=== PATIENT | male | born 1955 | race American Indian/Alaskan Native ===

== ENCOUNTER 2017-07-03 15:24 | Emergency (ER) | payer MEDICARE ==
[2017-07-03 15:39] VITALS: BP 113/80
[2017-07-03 16:32] LABS: Hematocrit 29.6 % (35.5-45.6); Hemoglobin 9.6 gm/dl (11.8-15.2); Mean Corpuscular HGB Conc 32 % (32-34); Mean Corpuscular Hemoglobin 27 pg (28-32); Mean Corpuscular Volume 83 fl (84-94); Platelet Count 182 K/mm3 (140-440); Red Blood Count 3.55 M/mm3 (3.65-5.03)
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
[2017-07-03 16:40] LABS: BUN/Creatinine Ratio 10; Blood Urea Nitrogen 7 mg/dL (9-20); Calcium 8.2 mg/dL (8.4-10.2); Hemolysis Index 0
[2017-07-03 17:03] LABS: Alanine Aminotransferase 63 units/L (7-56); Albumin 2.3 g/dL (3.9-5); BUN/Creatinine Ratio 12; Blood Urea Nitrogen 7 mg/dL (9-20); Calcium 8.2 mg/dL (8.4-10.2); Hemolysis Index 3
[2017-07-03 18:06] LABS: Anisocytosis 1+; Basophils % (Manual) 0 % (0.0-1.8); Eosinophils % (Manual) 0 % (0.0-4.3); Total Cells Counted 50
[2017-07-03 18:07] LABS: Macrocytosis 1+; Platelet Estimate Consistent w Auto; Target Cells 1+
== END 2017-07-03 20:13 | disposition home or self-care (01) ==
LOC: ED 15:24
DX: F14.10 Cocaine abuse, uncomplicated (principal); F11.10 Opioid abuse, uncomplicated; R60.0 Localized edema; I10 Essential (primary) hypertension; F17.200 Nicotine dependence, unspecified, uncomplicated; Z86.718 Personal history of other venous thrombosis and embolism; Z79.01 Long term (current) use of anticoagulants; Z79.899 Other long term (current) drug therapy
CPT/HCPCS: 36415; 80048; 80053; 82140; 83735; 85007; 85025; 99283; G0480; 80320

== ENCOUNTER 2017-07-15 14:18 | Inpatient (IN) | payer MEDICARE, OTHER ==
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
[2017-07-15] MEDS ORDERED: ASPIRIN PO ONE (15:57)
[2017-07-15 16:47] LABS: Bilirubin,Urine NEG (Negative); Blood,Urine NEG (Negative); Color,Urine Yellow (Yellow); Hyaline Casts,Urine 3 /LPF; Mucus,Urine FEW /HPF; Protein,Urine <15 mg/dL mg/dL (Negative); Urobilinogen,Urine < 2.0 mg/dL (<2.0)
[2017-07-15 17:00] LABS: Amphetamine Screen,Urine PRESUMPTIVE NEGATIVE; Benzodiazepines Screen,Urine PRESUMPTIVE NEGATIVE; Cannabinoid Screen,Urine PRESUMPTIVE NEGATIVE; Cocaine Screen,Urine PRESUMPTIVE NEGATIVE; Methadone Screen,Urine PRESUMPTIVE NEGATIVE; Opiate Screen,Urine PRESUMPTIVE NEGATIVE
[2017-07-15 17:08] LABS: Basophils % (Auto) 1.1 % (0.0-1.8); Eosinophils # (Auto) 0.1 K/mm3 (0.0-0.4); Eosinophils % (Auto) 1.4 % (0.0-4.3); Hematocrit 32.9 % (35.5-45.6); Hemoglobin 10.5 gm/dl (11.8-15.2); Lymphocytes # (Auto) 0.9 K/mm3 (1.2-5.4); Lymphocytes % (Auto) 24.6 % (13.4-35.0); Mean Corpuscular HGB Conc 32 % (32-34); Mean Corpuscular Hemoglobin 26 pg (28-32); Mean Corpuscular Volume 82 fl (84-94); Monocytes # (Auto) 0.6 K/mm3 (0.0-0.8); Monocytes % (Auto) 15.6 % (0.0-7.3); Platelet Count 110 K/mm3 (140-440); Red Blood Count 4.01 M/mm3 (3.65-5.03)
[2017-07-15 17:09] LABS: Red Cell Distribution Width 21.5 % (13.2-15.2)
[2017-07-15 17:18] LABS: INR 1.54 (0.87-1.13)
[2017-07-15 17:19] LABS: Partial Thromboplastin Time 51.4 Sec. (24.2-36.6)
[2017-07-15 17:34] LABS: Alanine Aminotransferase 85 units/L (7-56); Albumin 2.3 g/dL (3.9-5); BUN/Creatinine Ratio 18; Blood Urea Nitrogen 11 mg/dL (9-20); Calcium 8.2 mg/dL (8.4-10.2); Hemolysis Index 4
[2017-07-15 18:17] LABS: HDL Cholesterol 15 mg/dL (40-59); LDL Cholesterol,Direct 72 mg/dL (50-130)
--- NOTE | 2017-07-15 19:12 | History and Physical Report ---
History of Present Illness Chief complaint: My chest hurts History of present illness: 61 YO Male with HTN, HCV, Cirrhosis with Ascites S/P Paracentesis, DVT on therapeutic anticoagulation presents to ED for evaluation. Pt states that he has experienced chest pain and shortness of breath for the past 2 weeks with worsening symptoms over the past 1 day. Patient was brought in by EMS from [facility] and has an officer at bedside. Patient states that the pain in his chest 4/10, Substernal, worse with exertion, relieved with rest, nonradiating, relieved with rest, associated with shortness of breath. Pt denies fever, chills, palpitations, NVD, hemoptysis, trauma, BRBPR, unintentional weight loss , night sweats, Orthopnea/PND,Productive cough, or recent ill contacts. Pt seen and evaluated in ED and found to have NSTEMI. Cardiology consulted. Pt admitted to telemetry. Past History Past Medical History: DVT, hepatitis, other (cirrhosis) Past Surgical History: bowel surgery Social history: single. denies: smoking, alcohol abuse, prescription drug abuse Family history: hypertension Medications and Allergies Allergies Allergy/AdvReac Type Severity Reaction Status Date / Time No Known Allergies Allergy Verified 05/20/13 20:02 Home Medications Medication Instructions Recorded Confirmed Last Taken Type Citalopram [Celexa] 20 mg PO QDAY 05/20/13 05/19/14 01/14/14 History Clindamycin [Cleocin] 300 mg PO Q8H #21 cap 05/23/14 Unknown Rx Lisinopril [Zestril TAB] 10 mg PO QDAY #30 tablet 05/23/14 Unknown Rx Mirtazapine Solutab [Remeron 15 mg PO QHS #30 tab.rapdis 05/23/14 Unknown Rx Solutab] Morphine ER [Ms Contin ER] 15 mg PO Q12HR #10 tablet 05/23/14 Unknown Rx Rosuvastatin (Nf) [Crestor] 20 mg PO QHS #30 tablet 05/23/14 Unknown Rx amLODIPine [Norvasc] 5 mg PO QDAY #30 tablet 05/23/14 Unknown Rx oxyCODONE /ACETAMINOPHEN [Percocet 1 tab PO Q4H PRN #30 tablet 05/23/14 Unknown Rx 5/325 mg] Review of Systems Constitutional: no weight loss, no weight gain, no fever, no chills Ears, nose, mouth and throat: no ear pain, no ear discharge, no tinnitis, no decreased hearing, no nose pain, no nasal congestion Cardiovascular: chest pain, no orthopnea, no palpitations, no edema, no syncope Respiratory: no cough, no cough with sputum, no excessive sputum, no hemoptysis Gastrointestinal: no nausea, no vomiting, no diarrhea, no constipation Genitourinary Male: no hematuria, no flank pain, no discharge, no urinary frequency, no urinary hesitancy, no nocturia Rectal: no pain, no incontinence, no bleeding Musculoskeletal: no neck stiffness, no neck pain, no shooting arm pain, no arm numbness/tingling, no low back pain Integumentary: no rash, no pruritis, no redness, no sores, no wounds Neurological: no paralysis, no weakness, no parathesias, no numbness, no tingling, no seizures, no syncope, no tremors Psychiatric: no anxiety, no memory loss, no change in sleep habits, no sleep disturbances, no insomnia, no hypersomnia, no change in appetite, no change in libido Endocrine: no cold intolerance, no heat intolerance, no polyphagia, no excessive thirst, no polydipsia, no polyuria, no nocturia Hematologic/Lymphatic: no easy bruising, no easy bleeding, no lymphadenopathy, no lymphedema Allergic/Immunologic: no urticaria, no allergic rhinitis, no wheezing, no persistent infections, no anaphylaxis, no angioedema Exam - Constitutional Vitals: Temp Pulse Resp BP Pulse Ox 97.8 F 60 15 111/73 100 07/15/17 15:16 07/15/17 15:16 07/15/17 16:02 07/15/17 15:16 07/15/17 16:02 General appearance: Present: mild distress, cachectic, disheveled - EENT Eyes: Present: PERRL, scleral icterus ENT: hearing intact, clear oral mucosa - Neck Neck: Present: supple, normal ROM - Respiratory Respiratory effort: normal Respiratory: bilateral: CTA, rhonchi - Cardiovascular Heart Sounds: Present: S1 & S2. Absent: rub, click - Extremities Extremities: pulses symmetrical, No edema Peripheral Pulses: within normal limits - Abdominal General gastrointestinal: Present: soft, distended, hypoactive bowel sounds Male genitourinary: Present: normal - Integumentary Integumentary: Present: clear, dry - Musculoskeletal Musculoskeletal: generalized weakness - Psychiatric Psychiatric: appropriate mood/affect, intact judgment & insight - Neurologic Neurologic: CNII-XII intact, moves all extremities Results - Labs CBC & Chem 7: 18 16:36 07/15/17 16:48 Labs: Abnormal lab results 07/15/17 07/15/17 07/15/17 Range/Units 16:36 16:36 16:48 WBC 3.8 L (4.5-11.0) K/mm3 Hgb 10.5 L (11.8-15.2) gm/dl Hct 32.9 L (35.5-45.6) % MCV 82 L (84-94) fl MCH 26 L (28-32) pg RDW 21.5 H (13.2-15.2) % Plt Count 110 L (140-440) K/mm3 [place] % (Auto) 15.6 H (0.0-7.3) % Lymph # 0.9 L (1.2-5.4) K/mm3 PT 19.4 H (12.2-14.9) Sec. INR 1.54 H (0.87-1.13) APTT 51.4 H (24.2-36.6) Sec. Sodium (137-145) mmol/L Creatinine (0.8-1.5) mg/dL Calcium (8.4-10.2) mg/dL Total Bilirubin (0.1-1.2) mg/dL AST (5-40) units/L ALT (7-56) units/L Alkaline Phosphatase (35-129) units/L Ammonia 62.0 H (25-60) umol/L Troponin T (0.00-0.029) ng/mL Albumin (3.9-5) g/dL HDL Cholesterol (40-59) mg/dL 07/15/17 Range/Units 16:48 WBC (4.5-11.0) K/mm3 Hgb (11.8-15.2) gm/dl Hct (35.5-45.6) % MCV (84-94) fl MCH (28-32) pg RDW (13.2-15.2) % Plt Count (140-440) K/mm3 [place] % (Auto) (0.0-7.3) % Lymph # (1.2-5.4) K/mm3 PT (12.2-14.9) Sec. INR (0.87-1.13) APTT (24.2-36.6) Sec. Sodium 135 L (137-145) mmol/L Creatinine 0.6 L (0.8-1.5) mg/dL Calcium 8.2 L (8.4-10.2) mg/dL Total Bilirubin 3.60 H (0.1-1.2) mg/dL AST 178 H (5-40) units/L ALT 85 H (7-56) units/L Alkaline Phosphatase 907 H (35-129) units/L Ammonia (25-60) umol/L Troponin T 0.118 H* (0.00-0.029) ng/mL Albumin 2.3 L (3.9-5) g/dL HDL Cholesterol 15 L (40-59) mg/dL Assessment and Plan - Patient Problems (1) Non-STEMI (non-ST elevated myocardial infarction) Current Visit: Yes Status: Acute Plan to address problem: Cardiology consulted in ED, Therapeutic anticoagulation, serial cardiac enzymes , ekg, telemetry, further testing as per cardiology team. (2) Cirrhosis Current Visit: Yes Status: Acute Qualifiers: Ascites presence: with ascites Plan to address problem: Supportive care, Outpatient GI F/U. (3) Ascites Current Visit: Yes Status: Acute Plan to address problem: CT Abdomen pelvis, coagulation profile, supportive care. (4) DVT prophylaxis Current Visit: No Status: Acute Plan to address problem: SCD to BLE while in bed
[2017-07-15] MEDS ORDERED: ZOFRAN IV PRN (19:15)
[2017-07-15] MEDS ORDERED: SODIUM CHLORIDE FLUSH SYRINGE 10 ML IV PRN ×2 (19:15)
[2017-07-15] MEDS ORDERED: TYLENOL PO PRN (19:15)
[2017-07-15 19:41] LABS: Eosinophils % (Auto) 1.5 % (0.0-4.3); Hematocrit 31.7 % (35.5-45.6); Hemoglobin 10.1 gm/dl (11.8-15.2); Lymphocytes # (Auto) 0.8 K/mm3 (1.2-5.4); Lymphocytes % (Auto) 24.7 % (13.4-35.0); Mean Corpuscular HGB Conc 32 % (32-34); Mean Corpuscular Hemoglobin 26 pg (28-32); Mean Corpuscular Volume 82 fl (84-94); Monocytes # (Auto) 0.4 K/mm3 (0.0-0.8); Platelet Count 117 K/mm3 (140-440); Red Blood Count 3.86 M/mm3 (3.65-5.03)
[2017-07-15 19:43] LABS: Red Cell Distribution Width 21.2 % (13.2-15.2)
[2017-07-15 20:00] LABS: BUN/Creatinine Ratio 28; Blood Urea Nitrogen 11 mg/dL (9-20); Calcium 7.7 mg/dL (8.4-10.2); Hemolysis Index 36
[2017-07-15 20:01] LABS: Creatine Kinase MB 8.5 ng/mL (0.0-4.0)
[2017-07-15 20:20] LABS: Creatine Kinase MB 7.8 ng/mL (0.0-4.0)
--- NOTE | 2017-07-15 21:29 | Cat Scan Report ---
FINAL REPORT PROCEDURE: CT ABDOMEN PELVIS W CON TECHNIQUE: Computerized axial tomography of the abdomen and pelvis was performed after the IV injection of iodinated nonionic contrast. HISTORY: abd pain COMPARISON: No prior studies are available for comparison. FINDINGS: Lower Lung blair: Small right pleural effusion, small to moderate size left pleural effusion visualized. Patchy densities present adjacent to the effusions likely representing atelectasis, pneumonia needs clinical exclusion. Coronary arteries are visualized and appear partially calcified. There also appears to be a coronary artery stent in place. No evidence of pericardial effusion. Upper Abdomen: The edge of the liver appears finely diffusely nodular suggesting cirrhosis. No discrete liver lesions are identified. Multiple moderate-sized gallstones seen lying dependently in the gallbladder. Gallbladder wall is thickened. Intrahepatic ducts are not distended. The spleen is not enlarged. Right adrenal gland appears normal. Indeterminate 9 millimeter x 11 millimeter nodular density seen in the left adrenal gland. Pancreas showed no focal abnormality. Kidneys, Ureters and Urinary bladder: Kidneys ureters and urinary bladder are unremarkable. There is fluid however visualized in the perinephric spaces bilaterally. Retroperitoneum: Atherosclerotic changes are seen in the abdominal aorta and iliac arteries.. No aneurysm is visualized. Nonspecific subcentimeter lymph nodes are seen in the retroperitoneum. No pathologically enlarged lymph nodes are identified. Bowel: No focal bowel loop abnormalities are identified. There is no evidence of bowel obstruction. Large amount of ascites is present throughout the abdomen and pelvis distending the abdomen. No free intraperitoneal gas is seen. Reproductive organs: Prostate gland does not appear to be significantly enlarged. Other: There deformity of the left hemipelvis. Old healed fracture with resulting deformity appears to be present. The left SI joint is partially fused. Heterotopic bone formation seen lateral to the left hip. Intramedullary yevgeniy and compression screw device partially visualized in the right hip. IMPRESSION: There is evidence of cirrhosis of the liver and a large amount of ascites throughout the abdomen and pelvis. Gallbladder wall is significantly thickened and gallstones are present consistent with cholecystitis. Small right pleural effusion visualized, small to moderate left pleural effusion visualized. Patchy density seen adjacent to the effusions likely representing atelectasis. Pneumonia needs clinical exclusion. The kidneys ureters and urinary bladder are unremarkable with the exception of fluid in the perinephric space which likely is secondary to the patient's cirrhosis and overall diffuse ascites. Deformity left hemipelvis, the appearance is consistent with an old healed fracture. Intramedullary yevgeniy and compression screw device visualize right hip.
[2017-07-15] MEDS ORDERED: LOVENOX SUB-Q SCH (22:00)
[2017-07-15] MEDS ORDERED: NON-FORMULARY (Rosuvastatin (Nf) 20 MG) PO SCH (22:00)
[2017-07-15] MEDS: MS CONTIN ER PO SCH (22:07)
[2017-07-15] MEDS: SODIUM CHLORIDE FLUSH SYRINGE 10 ML IV SCH (22:09)
[2017-07-16] MEDS: REMERON SOLUTAB PO SCH ×2 (01:26→22:55)
[2017-07-16] MEDS ORDERED: NORVASC PO SCH (10:00)
[2017-07-16] MEDS: MS CONTIN ER PO SCH ×2 (11:05→22:41)
[2017-07-16] MEDS: LOVENOX SUB-Q SCH ×2 (11:05→22:42)
[2017-07-16] MEDS: celeXA PO SCH (11:05)
[2017-07-16] MEDS: ZESTRIL PO SCH (11:06)
[2017-07-16] MEDS: SODIUM CHLORIDE FLUSH SYRINGE 10 ML IV SCH ×2 (11:06→22:43)
--- NOTE | 2017-07-16 14:57 | Progress Note ---
Assessment and Plan - Non-STEMI (non-ST elevated myocardial infarction) Cardiology consulted in ED, Therapeutic anticoagulation, serial cardiac enzymes, Oxygen, ASA, NTG, BB. Lisinopril Statin, cardiology consult . - Cirrhosis Supportive care, GI consult - Ascites GI consult consider IR for paracenthesis CT Abdomen pelvis, coagulation profile, supportive care. - Calculous cholecystitis Has no RUQ pain - DVT prophylaxis Current Visit: No Status: Acute Plan to address problem: SCD to BLE while in bed Subjective Date of service: 07/16/17 Principal diagnosis: NSTEMI. live cirrhosis Interval history: Still having CP but better Objective - Constitutional Vitals: Vital Signs - 12hr 07/16/17 07/16/17 07/16/17 04:23 08:14 11:00 Temperature 100.0 F H 99.4 F 98.4 F Pulse Rate 75 82 44 L Respiratory 20 16 20 Rate Blood Pressure 109/71 Blood Pressure 102/68 95/55 [Left] O2 Sat by Pulse 84 98 97 Oximetry General appearance: Present: no acute distress, well-nourished - EENT Eyes: PERRL, EOM intact - Neck Neck: supple, normal ROM - Respiratory Respiratory effort: normal Respiratory: bilateral: CTA - Cardiovascular Rhythm: regular Heart Sounds: Present: S1 & S2. Absent: gallop, rub Extremities: pulses intact, No edema, normal color, Full ROM - Gastrointestinal General gastrointestinal: Present: soft, non-tender, distended, normal bowel sounds - Integumentary Integumentary: clear, warm, dry - Musculoskeletal Musculoskeletal: 1, strength equal bilaterally - Neurologic Neurologic: moves all extremities - Psychiatric Psychiatric: memory intact, appropriate mood/affect, intact judgment & insight - Labs CBC & Chem 7: 07/15/17 19:25 07/15/17 19:25 Labs: Abnormal lab results 07/15/17 07/15/17 07/15/17 Range/Units 16:36 16:36 16:48 WBC 3.8 L (4.5-11.0) K/mm3 Hgb 10.5 L (11.8-15.2) gm/dl Hct 32.9 L (35.5-45.6) % MCV 82 L (84-94) fl MCH 26 L (28-32) pg RDW 21.5 H (13.2-15.2) % Plt Count 110 L (140-440) K/mm3 [place] % (Auto) 15.6 H (0.0-7.3) % Lymph # 0.9 L (1.2-5.4) K/mm3 PT 19.4 H (12.2-14.9) Sec. INR 1.54 H (0.87-1.13) APTT 51.4 H (24.2-36.6) Sec. Sodium (137-145) mmol/L Carbon Dioxide (22-30) mmol/L Creatinine (0.8-1.5) mg/dL Glucose (75-100) mg/dL Calcium (8.4-10.2) mg/dL Total Bilirubin (0.1-1.2) mg/dL AST (5-40) units/L ALT (7-56) units/L Alkaline Phosphatase (35-129) units/L Ammonia 62.0 H (25-60) umol/L CK-MB (CK-2) (0.0-4.0) ng/mL CK-MB (CK-2) Rel Index (0-4) Troponin T (0.00-0.029) ng/mL Albumin (3.9-5) g/dL HDL Cholesterol (40-59) mg/dL 07/15/17 07/15/17 07/15/17 Range/Units 16:48 19:18 19:25 WBC 3.4 L (4.5-11.0) K/mm3 Hgb 10.1 L (11.8-15.2) gm/dl Hct 31.7 L (35.5-45.6) % MCV 82 L (84-94) fl MCH 26 L (28-32) pg RDW 21.2 H (13.2-15.2) % Plt Count 117 L (140-440) K/mm3 [place] % (Auto) 13.0 H (0.0-7.3) % Lymph # 0.8 L (1.2-5.4) K/mm3 PT (12.2-14.9) Sec. INR (0.87-1.13) APTT (24.2-36.6) Sec. Sodium 135 L (137-145) mmol/L Carbon Dioxide (22-30) mmol/L Creatinine 0.6 L (0.8-1.5) mg/dL Glucose (75-100) mg/dL Calcium 8.2 L (8.4-10.2) mg/dL Total Bilirubin 3.60 H (0.1-1.2) mg/dL AST 178 H (5-40) units/L ALT 85 H (7-56) units/L Alkaline Phosphatase 907 H (35-129) units/L Ammonia (25-60) umol/L CK-MB (CK-2) 8.5 H (0.0-4.0) ng/mL CK-MB (CK-2) Rel Index 5.8 H (0-4) Troponin T 0.118 H* (0.00-0.029) ng/mL Albumin 2.3 L (3.9-5) g/dL HDL Cholesterol 15 L (40-59) mg/dL 07/15/17 07/15/17 Range/Units 19:25 19:46 WBC (4.5-11.0) K/mm3 Hgb (11.8-15.2) gm/dl Hct (35.5-45.6) % MCV (84-94) fl MCH (28-32) pg RDW (13.2-15.2) % Plt Count (140-440) K/mm3 [place] % (Auto) (0.0-7.3) % Lymph # (1.2-5.4) K/mm3 PT (12.2-14.9) Sec. INR (0.87-1.13) APTT (24.2-36.6) Sec. Sodium (137-145) mmol/L Carbon Dioxide 21 L (22-30) mmol/L Creatinine 0.4 L (0.8-1.5) mg/dL Glucose 105 H (75-100) mg/dL Calcium 7.7 L (8.4-10.2) mg/dL Total Bilirubin (0.1-1.2) mg/dL AST (5-40) units/L ALT (7-56) units/L Alkaline Phosphatase (35-129) units/L Ammonia (25-60) umol/L CK-MB (CK-2) 7.8 H (0.0-4.0) ng/mL CK-MB (CK-2) Rel Index 7.2 H (0-4) Troponin T 0.122 H* (0.00-0.029) ng/mL Albumin (3.9-5) g/dL HDL Cholesterol (40-59) mg/dL
[2017-07-16] MEDS ORDERED: CEPHULAC PO SCH (16:00)
[2017-07-16] MEDS: LOPRESSOR PO SCH ×3 (16:10→22:41)
[2017-07-16] MEDS: ASPIRIN PO SCH (16:10)
[2017-07-16 16:46] LABS: BUN/Creatinine Ratio 20; Blood Urea Nitrogen 16 mg/dL (9-20); Calcium 7.9 mg/dL (8.4-10.2); Hemolysis Index 1
[2017-07-16 16:47] LABS: Creatine Kinase MB 4.4 ng/mL (0.0-4.0)
[2017-07-16] MEDS ORDERED: NACL 0.9% 500 ML 500 ML IV ONE (18:59)
[2017-07-16] MEDS: NACL 0.9% 1000 ML 1,000 ML IV SCH (20:17)
[2017-07-16 21:36] LABS: Creatine Kinase MB 5.2 ng/mL (0.0-4.0)
[2017-07-16] MEDS: CEPHULAC PO SCH (22:46)
--- NOTE | 2017-07-17 03:20 | Consultation ---
CARDIOLOGY CONSULTATION Room 469. REFERRING PHYSICIAN: Hospitalist service, Dr. Lopes. REASON FOR CONSULTATION: Advice and opinion regarding chest pain. HISTORY OF PRESENT ILLNESS: The patient is a pleasant 61-year-old gentleman with an extensive medical history including hypertension, hepatitis C, cirrhosis, ascites, questionable past DVT, presents here with 2 weeks of shortness of breath, had some chest pain over the past several days. He is brought to the hospital by EMS from [facility], officer at bedside. Upon arrival to the Emergency Room yesterday did state that he had chest pain. This morning states he does note no further chest pain, feels much better. Denies any fevers, chills, nausea or vomiting. No bright red blood per rectum. PAST MEDICAL HISTORY: As aforementioned. PAST SURGICAL HISTORY: History of abdominal/bowel surgery. SOCIAL HISTORY: Denies tobacco abuse or drug abuse. FAMILY HISTORY: Hypertension. ALLERGIES: No known drug, food or medication allergies. MEDICATION: Inpatient and outpatient medications reviewed. PHYSICAL EXAMINATION: VITAL SIGNS: Blood pressure is 110/70, is afebrile. Tele reveals sinus rhythm, no dysrhythmias. O2 sat is 98% on room air. GENERAL: This is a middle-aged male in no apparent distress, oriented x 3. HEENT: Sclerae icteric. NECK: Supple. No mass or JVD. CHEST: Decreased breath sounds bilateral bases. Overall, moderate air movement. CARDIOVASCULAR: Regular rhythm S1, S2. ABDOMEN: Soft, protuberant. No guarding or rebound. EXTREMITIES: No cyanosis, clubbing, edema. Good peripheral pulses. SKIN: Warm, dry and intact. No rashes. LABORATORY DATA: EKG reveals sinus rhythm, heart rate 61. Nonspecific ST-T wave changes. No dynamic ST change. LABORATORY DATA: WBC 3.4, hemoglobin 10.1, hematocrit 31.7, platelets 117. INR is 1.5. Ammonia is 62. Alk phos 907, ALT is 85, AST is 178. MB is 7.2, total CK is only 107, troponin is 0.12. UDS is negative. CT abdomen and pelvis shows cirrhosis of liver and large amount of ascites in the abdomen and pelvis. CONCLUSIONS: The patient is a pleasant 61-year-old gentleman who presents with chest pain, shortness of breath, abdominal pain. 1. Mildly elevated troponin with a normal CK. He is currently chest pain free with a nonacute EKG. 2. Liver cirrhosis with ascites with protuberant abdomen, may need paracentesis. 3. Hepatitis C. 4. Questionable medication compliance. 5. Questionable history of DVT in the past. At this point, we will check an echocardiogram. Would continue current therapies including Lovenox, aspirin, CONNIE inhibition and statin therapy. We will cycle cardiac enzymes including CK and MB. We will follow along with you. Thank you patient is currently clinically stable and asymptomatic. JOB# [id number] MARITZA/IQRA
[2017-07-17] MEDS ORDERED: LANOXIN IV ONE (04:36)
[2017-07-17 07:10] LABS: Basophils % (Auto) 0.1 % (0.0-1.8); Eosinophils % (Auto) 0.1 % (0.0-4.3); Hematocrit 30.8 % (35.5-45.6); Hemoglobin 10.1 gm/dl (11.8-15.2); Lymphocytes # (Auto) 0.5 K/mm3 (1.2-5.4); Lymphocytes % (Auto) 5.7 % (13.4-35.0); Mean Corpuscular HGB Conc 33 % (32-34); Mean Corpuscular Hemoglobin 27 pg (28-32); Mean Corpuscular Volume 82 fl (84-94); Monocytes # (Auto) 1.2 K/mm3 (0.0-0.8); Monocytes % (Auto) 13.1 % (0.0-7.3); Platelet Count 128 K/mm3 (140-440); Red Blood Count 3.77 M/mm3 (3.65-5.03)
[2017-07-17 07:17] LABS: Red Cell Distribution Width 20.9 % (13.2-15.2)
[2017-07-17 07:31] LABS: Alanine Aminotransferase 61 units/L (7-56); Albumin 1.8 g/dL (3.9-5); BUN/Creatinine Ratio 18; Blood Urea Nitrogen 22 mg/dL (9-20); Calcium 7.7 mg/dL (8.4-10.2); Hemolysis Index 15
--- NOTE | 2017-07-17 09:58 | Progress Note ---
Assessment and Plan clinically improved await tte [facility] in am - Patient Problems (1) Chest pain Current Visit: Yes Status: Acute Qualifiers: Chest pain type: unspecified Qualified Code(s): R07.9 - Chest pain, unspecified (2) Cirrhosis Current Visit: Yes Status: Acute Qualifiers: Ascites presence: with ascites (3) Elevated troponin Current Visit: Yes Status: Acute (4) Liver disease Current Visit: Yes Status: Acute (5) Non-STEMI (non-ST elevated myocardial infarction) Current Visit: Yes Status: Acute Subjective Date of service: 07/17/17 Principal diagnosis: NSTEMI. live cirrhosis Interval history: no new sxs feels tired no cp or sob Objective Vital Signs Temp Pulse Resp BP BP Pulse Ox 07/17/17 07:45 77 07/17/17 06:21 20 104/53 07/17/17 04:47 137 H 82/56 07/17/17 04:14 98.8 F 132 H 22 82/56 99 07/17/17 03:29 71 87/59 98 07/17/17 03:28 71 88/61 85 07/17/17 03:26 98.5 F 115 H 18 83/55 97 07/17/17 00:15 75/49 07/17/17 00:11 61 82/45 99 07/17/17 00:00 98.5 F 68 20 84/45 98 07/16/17 20:51 98.5 F 59 L 18 95/58 100 07/16/17 20:49 87/55 07/16/17 15:43 98.0 F 68 16 83/56 100 07/16/17 11:57 98.0 F 74 16 95/55 100 07/16/17 11:00 98.4 F 44 L 20 95/55 97 07/16/17 10:00 98 - Labs and Meds Cardiac Enzymes 07/16/17 07/16/17 07/17/17 Range/Units 16:01 20:45 05:40 AST 98 H (5-40) units/L CK-MB (CK-2) 4.4 H 5.2 H (0.0-4.0) ng/mL CBC 07/17/17 Range/Units 05:40 WBC 9.0 (4.5-11.0) K/mm3 RBC 3.77 (3.65-5.03) M/mm3 Hgb 10.1 L (11.8-15.2) gm/dl Hct 30.8 L (35.5-45.6) % Plt Count 128 L (140-440) K/mm3 Lymph # 0.5 L (1.2-5.4) K/mm3 [place] # 1.2 H (0.0-0.8) K/mm3 Eos # 0.0 (0.0-0.4) K/mm3 Baso # 0.0 (0.0-0.1) K/mm3 Comprehensive Metabolic Panel 07/16/17 07/17/17 Range/Units 16:01 05:40 Sodium 138 140 (137-145) mmol/L Potassium 4.3 3.9 (3.6-5.0) mmol/L Chloride 104.2 107.0 (98-107) mmol/L Carbon Dioxide 19 L 20 L (22-30) mmol/L BUN 16 22 H (9-20) mg/dL Creatinine 0.8 D 1.2 (0.8-1.5) mg/dL Glucose 109 H 89 (75-100) mg/dL Calcium 7.9 L 7.7 L (8.4-10.2) mg/dL AST 98 H (5-40) units/L ALT 61 H (7-56) units/L Alkaline Phosphatase 571 H (35-129) units/L Total Protein 5.7 L (6.3-8.2) g/dL Albumin 1.8 L (3.9-5) g/dL
--- NOTE | 2017-07-17 10:18 | Progress Note ---
Assessment and Plan - Non-STEMI (non-ST elevated myocardial infarction) Cardiology following Therapeutic anticoagulation, serial cardiac enzymes, Oxygen, ASA, NTG, BB. Lisinopril, Statin, cardiology consult . - Cirrhosis Supportive care, GI consult - Ascites GI consult consider IR for paracenthesis CT Abdomen pelvis, coagulation profile, supportive care. - Hetapic encephalopathy lactulose GI following - Calculous cholecystitis Has no RUQ pain - DVT prophylaxis Current Visit: No Status: Acute Plan to address problem: SCD to BLE while in bed Subjective Date of service: 07/17/17 Principal diagnosis: NSTEMI. live cirrhosis Interval history: Lethergic. Still having CP but less Objective - Constitutional Vitals: Vital Signs - 12hr 07/17/17 07/17/17 07/17/17 00:00 00:11 00:15 Temperature 98.5 F Pulse Rate 68 61 Respiratory 20 Rate Blood Pressure 82/45 Blood Pressure 84/45 75/49 [Left] O2 Sat by Pulse 98 99 Oximetry 07/17/17 07/17/17 07/17/17 03:26 03:28 03:29 Temperature 98.5 F Pulse Rate 115 H 71 71 Respiratory 18 Rate Blood Pressure 83/55 88/61 87/59 Blood Pressure [Left] O2 Sat by Pulse 97 85 98 Oximetry 07/17/17 07/17/17 07/17/17 04:14 04:47 06:21 Temperature 98.8 F Pulse Rate 132 H 137 H Respiratory 22 20 Rate Blood Pressure 82/56 82/56 104/53 Blood Pressure [Left] O2 Sat by Pulse 99 Oximetry 07/17/17 07:45 Temperature Pulse Rate 77 Respiratory Rate Blood Pressure Blood Pressure [Left] O2 Sat by Pulse Oximetry General appearance: Present: no acute distress, well-nourished - EENT Eyes: PERRL, EOM intact Ears: bilateral: normal - Neck Neck: supple, normal ROM - Respiratory Respiratory effort: normal Respiratory: bilateral: CTA - Cardiovascular Rhythm: regular Heart Sounds: Present: S1 & S2. Absent: gallop, rub Extremities: pulses intact, No edema, normal color, Full ROM - Gastrointestinal General gastrointestinal: Present: soft, non-tender, distended, normal bowel sounds - Integumentary Integumentary: clear, warm, dry - Musculoskeletal Musculoskeletal: generalized weakness - Neurologic Neurologic: other (lethergic) - Psychiatric Psychiatric: other (Lethergic) - Labs CBC & Chem 7: 07/17/17 05:40 07/17/17 05:40 Labs: Abnormal lab results 07/16/17 07/16/17 07/16/17 Range/Units 16:01 16:01 16:01 Hgb (11.8-15.2) gm/dl Hct (35.5-45.6) % MCV (84-94) fl MCH (28-32) pg RDW (13.2-15.2) % Plt Count (140-440) K/mm3 Lymph % (Auto) (13.4-35.0) % [place] % (Auto) (0.0-7.3) % Lymph # (1.2-5.4) K/mm3 [place] # (0.0-0.8) K/mm3 Seg Neutrophils % (40.0-70.0) % Carbon Dioxide 19 L (22-30) mmol/L BUN (9-20) mg/dL Glucose 109 H (75-100) mg/dL Calcium 7.9 L (8.4-10.2) mg/dL Total Bilirubin (0.1-1.2) mg/dL AST (5-40) units/L ALT (7-56) units/L Alkaline Phosphatase (35-129) units/L Ammonia (25-60) umol/L CK-MB (CK-2) 4.4 H (0.0-4.0) ng/mL CK-MB (CK-2) Rel Index 4.5 H (0-4) Troponin T 0.196 H* D (0.00-0.029) ng/mL Total Protein (6.3-8.2) g/dL Albumin (3.9-5) g/dL 07/16/17 07/16/17 07/17/17 Range/Units 16:01 20:45 05:40 Hgb 10.1 L (11.8-15.2) gm/dl Hct 30.8 L (35.5-45.6) % MCV 82 L (84-94) fl MCH 27 L (28-32) pg RDW 20.9 H (13.2-15.2) % Plt Count 128 L (140-440) K/mm3 Lymph % (Auto) 5.7 L (13.4-35.0) % [place] % (Auto) 13.1 H (0.0-7.3) % Lymph # 0.5 L (1.2-5.4) K/mm3 [place] # 1.2 H (0.0-0.8) K/mm3 Seg Neutrophils % 81.0 H (40.0-70.0) % Carbon Dioxide (22-30) mmol/L BUN (9-20) mg/dL Glucose (75-100) mg/dL Calcium (8.4-10.2) mg/dL Total Bilirubin (0.1-1.2) mg/dL AST (5-40) units/L ALT (7-56) units/L Alkaline Phosphatase (35-129) units/L Ammonia 120.0 H (25-60) umol/L CK-MB (CK-2) 5.2 H (0.0-4.0) ng/mL CK-MB (CK-2) Rel Index 4.1 H (0-4) Troponin T 0.247 H* D (0.00-0.029) ng/mL Total Protein (6.3-8.2) g/dL Albumin (3.9-5) g/dL 07/17/17 Range/Units 05:40 Hgb (11.8-15.2) gm/dl Hct (35.5-45.6) % MCV (84-94) fl MCH (28-32) pg RDW (13.2-15.2) % Plt Count (140-440) K/mm3 Lymph % (Auto) (13.4-35.0) % [place] % (Auto) (0.0-7.3) % Lymph # (1.2-5.4) K/mm3 [place] # (0.0-0.8) K/mm3 Seg Neutrophils % (40.0-70.0) % Carbon Dioxide 20 L (22-30) mmol/L BUN 22 H (9-20) mg/dL Glucose (75-100) mg/dL Calcium 7.7 L (8.4-10.2) mg/dL Total Bilirubin 5.30 H (0.1-1.2) mg/dL AST 98 H (5-40) units/L ALT 61 H (7-56) units/L Alkaline Phosphatase 571 H (35-129) units/L Ammonia (25-60) umol/L CK-MB (CK-2) (0.0-4.0) ng/mL CK-MB (CK-2) Rel Index (0-4) Troponin T (0.00-0.029) ng/mL Total Protein 5.7 L (6.3-8.2) g/dL Albumin 1.8 L (3.9-5) g/dL
[2017-07-17] MEDS: celeXA PO SCH (11:29)
[2017-07-17] MEDS: CEPHULAC PO SCH ×2 (11:29→22:40)
[2017-07-17] MEDS: LOPRESSOR PO SCH ×2 (11:29→22:54)
[2017-07-17] MEDS: ASPIRIN PO SCH (11:29)
[2017-07-17] MEDS: MS CONTIN ER PO SCH ×2 (11:30→22:55)
[2017-07-17] MEDS: LOVENOX SUB-Q SCH ×2 (11:30→22:41)
[2017-07-17] MEDS: SODIUM CHLORIDE FLUSH SYRINGE 10 ML IV SCH ×2 (11:30→22:55)
[2017-07-17] MEDS: ZESTRIL PO SCH (11:31)
--- NOTE | 2017-07-17 16:32 | Consultation ---
History of Present Illness - Reason for Consult Consult date: 07/17/17 Cirrhosis, HCV Requesting physician: JOHN BAILON - History of Present Illness Mr. Astorga is a 61-year-old man who is currently in alf for the last week. He was brought to the emergency room for chest pain and found to have a non-STEMI. Echocardiogram shows a 30-35% ejection fraction. He is scheduled to get a left heart cath tomorrow. We are consulted for assistance in management of cirrhosis. Patient states he has at least six-year history of cirrhosis attributed to hepatitis C. He was also an alcoholic who quit drinking 9 months ago. He does not have routine care, but states he was last seen at [facility] approximately 3 months ago where he had paracentesis done. He is not aware of much regarding any details of his liver disease. He has not been treated for hepatitis C. He denies GI bleed. Patient denies abdominal pain, nausea or vomiting. Of note, patient was apparently on Pradaxa for DVT prior to admission. Past History Past Medical History: DVT, hepatitis, other (cirrhosis) Past Surgical History: bowel surgery Social history: single. denies: smoking, alcohol abuse, prescription drug abuse Family history: hypertension Medications and Allergies Allergies Allergy/AdvReac Type Severity Reaction Status Date / Time No Known Allergies Allergy Verified 05/20/13 20:02 Home Medications Medication Instructions Recorded Confirmed Last Taken Type Citalopram [Celexa] 20 mg PO QDAY 05/20/13 05/19/14 01/14/14 History Clindamycin [Cleocin] 300 mg PO Q8H #21 cap 05/23/14 Unknown Rx Lisinopril [Zestril TAB] 10 mg PO QDAY #30 tablet 05/23/14 Unknown Rx Mirtazapine Solutab [Remeron 15 mg PO QHS #30 tab.rapdis 05/23/14 Unknown Rx Solutab] Morphine ER [Ms Contin ER] 15 mg PO Q12HR #10 tablet 05/23/14 Unknown Rx Rosuvastatin (Nf) [Crestor] 20 mg PO QHS #30 tablet 05/23/14 Unknown Rx amLODIPine [Norvasc] 5 mg PO QDAY #30 tablet 05/23/14 Unknown Rx oxyCODONE /ACETAMINOPHEN [Percocet 1 tab PO Q4H PRN #30 tablet 05/23/14 Unknown Rx 5/325 mg] Active Meds: Active Medications Acetaminophen (Tylenol) 650 mg PO Q4H PRN PRN Reason: Pain MILD(1-3)/Fever >100.5/BUSH Aspirin (Aspirin) 325 mg PO QDAY [facility] Last Admin: 07/17/17 11:29 Dose: 325 mg Atorvastatin Calcium (Lipitor) 40 mg PO QHS [facility] Last Admin: 07/16/17 22:55 Dose: 40 mg Citalopram Hydrobromide (Celexa) 20 mg PO QDAY [facility] Last Admin: 07/17/17 11:29 Dose: 20 mg Enoxaparin Sodium (Lovenox) 60 mg 1 mg/kg (60 mg) SUB-Q Q12HR [facility] Last Admin: 07/17/17 11:30 Dose: 60 mg Sodium Chloride (Nacl 0.9% 1000 Ml) 1,000 mls @ 75 mls/hr IV DIRECT [facility] Last Admin: 07/16/17 20:17 Dose: 75 mls/hr Lactulose (Cephulac) 60 gm PO Q12HR [facility] Last Admin: 07/17/17 11:29 Dose: 60 gm Lisinopril (Zestril) 10 mg PO QDAY [facility] Last Admin: 07/17/17 11:31 Dose: Not Given Metoprolol Tartrate (Lopressor) 12.5 mg PO BID [facility] Last Admin: 07/17/17 11:29 Dose: Not Given Mirtazapine (Remeron Solutab) 15 mg PO QHS [facility] Last Admin: 07/16/17 22:55 Dose: 15 mg Morphine Sulfate (Ms Contin Er) 15 mg PO Q12HR [facility] Last Admin: 07/17/17 11:30 Dose: Not Given Ondansetron HCl (Zofran) 4 mg IV Q8H PRN PRN Reason: Nausea And Vomiting Oxycodone/Acetaminophen (Percocet 5/325) 1 tab PO Q4H PRN PRN Reason: Pain, Moderate (4-6) Sodium Chloride (Sodium Chloride Flush Syringe 10 Ml) 10 ml IV BID [facility] Last Admin: 07/17/17 11:30 Dose: 10 ml Sodium Chloride (Sodium Chloride Flush Syringe 10 Ml) 10 ml IV PRN PRN PRN Reason: LINE FLUSH Last Admin: 07/16/17 20:16 Dose: 10 ml Sodium Chloride (Sodium Chloride Flush Syringe 10 Ml) 10 ml IV PRN PRN PRN Reason: LINE FLUSH Review of Systems All systems: negative (as noted in chart) Exam - Constitutional Vitals: Temp Pulse Resp BP Pulse Ox 98.8 F 77 20 104/53 99 07/17/17 04:14 07/17/17 07:45 07/17/17 06:21 07/17/17 06:21 07/17/17 04:14 General appearance: Present: no acute distress, cachectic - EENT Eyes: Present: PERRL, EOM intact, scleral icterus ENT: hearing intact - Respiratory Respiratory effort: normal Respiratory: bilateral: CTA - Cardiovascular Rhythm: regular Heart Sounds: Present: S1 & S2 - Extremities Extremities: No edema - Abdominal General gastrointestinal: Present: soft, non-tender, distended, normal bowel sounds Results - Labs CBC & Chem 7: 07/17/17 05:40 07/17/17 05:40 Labs: Abnormal lab results 07/16/17 07/16/17 07/16/17 Range/Units 16:01 16:01 16:01 Hgb (11.8-15.2) gm/dl Hct (35.5-45.6) % MCV (84-94) fl MCH (28-32) pg RDW (13.2-15.2) % Plt Count (140-440) K/mm3 Lymph % (Auto) (13.4-35.0) % [place] % (Auto) (0.0-7.3) % Lymph # (1.2-5.4) K/mm3 [place] # (0.0-0.8) K/mm3 Seg Neutrophils % (40.0-70.0) % Carbon Dioxide 19 L (22-30) mmol/L BUN (9-20) mg/dL Glucose 109 H (75-100) mg/dL Calcium 7.9 L (8.4-10.2) mg/dL Total Bilirubin (0.1-1.2) mg/dL AST (5-40) units/L ALT (7-56) units/L Alkaline Phosphatase (35-129) units/L Ammonia (25-60) umol/L CK-MB (CK-2) 4.4 H (0.0-4.0) ng/mL CK-MB (CK-2) Rel Index 4.5 H (0-4) Troponin T 0.196 H* D (0.00-0.029) ng/mL Total Protein (6.3-8.2) g/dL Albumin (3.9-5) g/dL 07/16/17 07/16/17 07/17/17 Range/Units 16:01 20:45 05:40 Hgb 10.1 L (11.8-15.2) gm/dl Hct 30.8 L (35.5-45.6) % MCV 82 L (84-94) fl MCH 27 L (28-32) pg RDW 20.9 H (13.2-15.2) % Plt Count 128 L (140-440) K/mm3 Lymph % (Auto) 5.7 L (13.4-35.0) % [place] % (Auto) 13.1 H (0.0-7.3) % Lymph # 0.5 L (1.2-5.4) K/mm3 [place] # 1.2 H (0.0-0.8) K/mm3 Seg Neutrophils % 81.0 H (40.0-70.0) % Carbon Dioxide (22-30) mmol/L BUN (9-20) mg/dL Glucose (75-100) mg/dL Calcium (8.4-10.2) mg/dL Total Bilirubin (0.1-1.2) mg/dL AST (5-40) units/L ALT (7-56) units/L Alkaline Phosphatase (35-129) units/L Ammonia 120.0 H (25-60) umol/L CK-MB (CK-2) 5.2 H (0.0-4.0) ng/mL CK-MB (CK-2) Rel Index 4.1 H (0-4) Troponin T 0.247 H* D (0.00-0.029) ng/mL Total Protein (6.3-8.2) g/dL Albumin (3.9-5) g/dL 07/17/17 Range/Units 05:40 Hgb (11.8-15.2) gm/dl Hct (35.5-45.6) % MCV (84-94) fl MCH (28-32) pg RDW (13.2-15.2) % Plt Count (140-440) K/mm3 Lymph % (Auto) (13.4-35.0) % [place] % (Auto) (0.0-7.3) % Lymph # (1.2-5.4) K/mm3 [place] # (0.0-0.8) K/mm3 Seg Neutrophils % (40.0-70.0) % Carbon Dioxide 20 L (22-30) mmol/L BUN 22 H (9-20) mg/dL Glucose (75-100) mg/dL Calcium 7.7 L (8.4-10.2) mg/dL Total Bilirubin 5.30 H (0.1-1.2) mg/dL AST 98 H (5-40) units/L ALT 61 H (7-56) units/L Alkaline Phosphatase 571 H (35-129) units/L Ammonia (25-60) umol/L CK-MB (CK-2) (0.0-4.0) ng/mL CK-MB (CK-2) Rel Index (0-4) Troponin T (0.00-0.029) ng/mL Total Protein 5.7 L (6.3-8.2) g/dL Albumin 1.8 L (3.9-5) g/dL - Imaging and Cardiology CT scan - abdomen: report reviewed (Moderate to large ascites) Assessment and Plan 1. Cirrhosis, advanced - due to a combination of alcohol in the past as well as ongoing hepatitis C. Patient undoubtedly has records somewhere and these need to be evaluated in order to initiate management of chronic illness. Patient however does have advanced disease with cachexia as well as the jaundice. He is hypoalbuminemic. He has mild elevation in INR. Surprisingly, his platelet count was normal on admission. He has ascites and this was apparently drained 3 months ago at [facility], though we do not have the details. At present, patient may well benefit from paracentesis for comfort as well as to assess cytology and exclude malignancy. An alpha-fetoprotein level is also useful. Subsequently, outpatient management would be appropriate in order to acquire prior data, check for active hepatitis C, and plan on eradication therapy. -If beta blockers are required, would recommend nonselective beta blockers. -After cardiac cath, if there is no contraindication, large volume paracentesis would be appropriate with fluid sent for analysis including cytology. -Check alpha-fetoprotein level -Further management would be done on an outpatient basis. Patient should be discharged on low sodium diet and, if tolerated, diuretics.
[2017-07-17] MEDS: REMERON SOLUTAB PO SCH (22:40)
[2017-07-18] MEDS: NACL 0.9% 1000 ML 1,000 ML IV SCH (01:48)
[2017-07-18 05:27] LABS: Basophils % (Auto) 0.1 % (0.0-1.8); Hemoglobin 9.1 gm/dl (11.8-15.2); Lymphocytes # (Auto) 0.5 K/mm3 (1.2-5.4); Lymphocytes % (Auto) 4.6 % (13.4-35.0); Mean Corpuscular HGB Conc 34 % (32-34); Mean Corpuscular Hemoglobin 27 pg (28-32); Mean Corpuscular Volume 80 fl (84-94); Monocytes # (Auto) 1.4 K/mm3 (0.0-0.8); Monocytes % (Auto) 12.9 % (0.0-7.3); Platelet Count 109 K/mm3 (140-440); Red Blood Count 3.36 M/mm3 (3.65-5.03); Red Cell Distribution Width 19.9 % (13.2-15.2)
[2017-07-18 05:41] LABS: Alanine Aminotransferase 48 units/L (7-56); BUN/Creatinine Ratio 29; Blood Urea Nitrogen 20 mg/dL (9-20); Calcium 7.4 mg/dL (8.4-10.2); Hemolysis Index 1
[2017-07-18 05:42] LABS: INR 1.91 (0.87-1.13)
[2017-07-18 05:46] LABS: Partial Thromboplastin Time 70.4 Sec. (24.2-36.6)
[2017-07-18] MEDS ORDERED: K-DUR PO ONE (06:16)
[2017-07-18 07:48] LABS: Albumin 1.7 g/dL (3.9-5)
[2017-07-18] MEDS ORDERED: K-DUR PO NR (09:00)
--- NOTE | 2017-07-18 09:07 | Event Note ---
Date: 07/18/17 Heart cath pending for today. Further recommendations to follow results.
--- NOTE | 2017-07-18 10:02 | Progress Note ---
Assessment and Plan - Non-STEMI (non-ST elevated myocardial infarction) Cardiology following. FOr Cardia cath today Therapeutic anticoagulation, serial cardiac enzymes, Oxygen, ASA, NTG, BB. Lisinopril, Statin, cardiology consult . - Cirrhosis Supportive care, GI consult - Ascites GI consult consider IR for paracenthesis CT Abdomen pelvis, coagulation profile, supportive care. - Hetapic encephalopathy lactulose GI following - Calculous cholecystitis Has no RUQ pain - DVT prophylaxis Current Visit: No Status: Acute Plan to address problem: SCD to BLE while in bed Subjective Date of service: 07/18/17 Principal diagnosis: NSTEMI. live cirrhosis Interval history: pt seen and examined. Lethergic. Still having CP but less Objective - Constitutional Vitals: Vital Signs - 12hr 07/18/17 07/18/17 07/18/17 01:19 04:12 07:31 Temperature 98.1 F 98.5 F 97.3 F L Pulse Rate 58 L 73 71 Respiratory 20 20 22 Rate Blood Pressure 97/55 93/56 Blood Pressure 83/54 [Left] O2 Sat by Pulse 97 98 96 Oximetry General appearance: Present: no acute distress, well-nourished - EENT Eyes: PERRL, EOM intact - Neck Neck: supple, normal ROM - Respiratory Respiratory effort: normal Respiratory: bilateral: CTA - Cardiovascular Rhythm: regular Heart Sounds: Present: S1 & S2. Absent: gallop, rub Extremities: pulses intact, No edema, normal color, Full ROM - Gastrointestinal General gastrointestinal: Present: non-tender, distended, normal bowel sounds - Integumentary Integumentary: clear, warm, dry - Musculoskeletal Musculoskeletal: strength equal bilaterally - Neurologic Neurologic: moves all extremities - Psychiatric Psychiatric: cooperative, depressed - Labs CBC & Chem 7: 07/18/17 04:52 07/18/17 04:52 Labs: Abnormal lab results 07/18/17 07/18/17 07/18/17 Range/Units 04:52 04:52 05:04 RBC 3.36 L (3.65-5.03) M/mm3 Hgb 9.1 L (11.8-15.2) gm/dl Hct 27.0 L (35.5-45.6) % MCV 80 L (84-94) fl MCH 27 L (28-32) pg RDW 19.9 H (13.2-15.2) % Plt Count 109 L (140-440) K/mm3 Lymph % (Auto) 4.6 L (13.4-35.0) % [place] % (Auto) 12.9 H (0.0-7.3) % Lymph # 0.5 L (1.2-5.4) K/mm3 [place] # 1.4 H (0.0-0.8) K/mm3 Seg Neutrophils % 82.4 H (40.0-70.0) % Seg Neutrophils # 8.8 H (1.8-7.7) K/mm3 PT 23.1 H (12.2-14.9) Sec. INR 1.91 H (0.87-1.13) APTT 70.4 H* (24.2-36.6) Sec. Potassium 3.2 L (3.6-5.0) mmol/L Carbon Dioxide 19 L (22-30) mmol/L Creatinine 0.7 L (0.8-1.5) mg/dL Calcium 7.4 L (8.4-10.2) mg/dL Total Bilirubin 5.30 H (0.1-1.2) mg/dL AST 68 H (5-40) units/L Alkaline Phosphatase 459 H (35-129) units/L Total Protein 5.4 L (6.3-8.2) g/dL Albumin 1.7 L (3.9-5) g/dL
[2017-07-18] MEDS ORDERED: HEPARIN 10,000 UNITS/10 ML ONE (10:15)
[2017-07-18] MEDS ORDERED: HEPARIN/NS 5000 UNIT/500ML(CATH LAB) 1,000 ML IR ONE (10:15)
[2017-07-18] MEDS ORDERED: ECOTRIN PO ONE ×2 (10:15→10:26)
[2017-07-18] MEDS ORDERED: NITROGLYCERIN SYRINGE 3 ML ONE (10:16)
[2017-07-18] MEDS ORDERED: XYLOCAINE 2% INFILTRATI ONE (10:16)
[2017-07-18] MEDS ORDERED: CALAN ONE (10:16)
[2017-07-18] MEDS ORDERED: NEO SYNEPHRINE ONE (10:31)
[2017-07-18] MEDS ORDERED: NACL 0.9% 100 ML ONE (10:32)
[2017-07-18] MEDS ORDERED: NEO SYNEPHRINE/NS Syringe(OR USE) IV ONE (10:38)
[2017-07-18] MEDS ORDERED: ZESTRIL PO SCH ×2 (10:57→11:00)
--- NOTE | 2017-07-18 11:05 | Progress Note ---
Assessment and Plan Abd distension - ascties Acute on chronic systolic heart failure compensated NStemi type 2 CAD malnutrution hyperlipidemia hypertension hypokalemia po kcl given rec: She has nonobstructive coronary disease small vessel distal RCA there we' ll treat medically with aspirin no dual antiplatelet given low platelets patient is on low-dose lisinopril and beta familia for LV dysfunction approximately 40-45% consider Aldactone given patient's hypokalemia and cirrhosis and Lasix continue statin therapy patient may be discharged from a cardiovascular point of view Subjective Date of service: 07/18/17 Principal diagnosis: NSTEMI. live cirrhosis Interval history: pt has some abd discomfort no chest pain Objective Vital Signs Temp Pulse Resp BP BP Pulse Ox 07/18/17 07:31 97.3 F L 71 22 83/54 96 07/18/17 04:12 98.5 F 73 20 93/56 98 07/18/17 01:19 98.1 F 58 L 20 97/55 97 07/17/17 21:26 98.3 F 60 20 99/58 96 07/17/17 21:20 98 07/17/17 18:50 98.2 F 58 L 14 110/63 98 07/17/17 17:21 100 - Physical Examination General: Cachectic HEENT: Positive: EOMI Neck: Positive: trachea midline Cardiac: Positive: Reg Rate and Rhythm Lungs: Positive: clear to auscultation Neuro: Positive: Grossly Intact Abdomen: Positive: Distended Extremities: Absent: edema - Labs and Meds Cardiac Enzymes 07/18/17 Range/Units 04:52 AST 68 H (5-40) units/L Coagulation 07/18/17 Range/Units 05:04 PT 23.1 H (12.2-14.9) Sec. INR 1.91 H (0.87-1.13) APTT 70.4 H* (24.2-36.6) Sec. CBC 07/18/17 Range/Units 04:52 WBC 10.7 (4.5-11.0) K/mm3 RBC 3.36 L (3.65-5.03) M/mm3 Hgb 9.1 L (11.8-15.2) gm/dl Hct 27.0 L (35.5-45.6) % Plt Count 109 L (140-440) K/mm3 Lymph # 0.5 L (1.2-5.4) K/mm3 [place] # 1.4 H (0.0-0.8) K/mm3 Eos # 0.0 (0.0-0.4) K/mm3 Baso # 0.0 (0.0-0.1) K/mm3 Comprehensive Metabolic Panel 07/18/17 Range/Units 04:52 Sodium 137 (137-145) mmol/L Potassium 3.2 L (3.6-5.0) mmol/L Chloride 105.9 (98-107) mmol/L Carbon Dioxide 19 L (22-30) mmol/L BUN 20 (9-20) mg/dL Creatinine 0.7 L (0.8-1.5) mg/dL Glucose 92 (75-100) mg/dL Calcium 7.4 L (8.4-10.2) mg/dL AST 68 H (5-40) units/L ALT 48 (7-56) units/L Alkaline Phosphatase 459 H (35-129) units/L Total Protein 5.4 L (6.3-8.2) g/dL Albumin 1.7 L (3.9-5) g/dL - Imaging and Cardiology Echo: report reviewed (ef 30-35% with moderate plueral effusion and no as or mr) Cardiac cath: report reviewed (lt main patent with mild luminal irregularties and lad stent patent, lcx patent small, rca distal 70% small vessel, ef 40-45%) - Telemetry EKG Rhythm: Sinus Rhythm
--- NOTE | 2017-07-18 11:10 | Cardiac Catherization Report ---
LEFT HEART CATHETERIZATION CLINICAL INFORMATION: A 61-year-old -[place] gentleman with cirrhosis, presents with abnormal troponin suggesting non-STEMI type 2 with moderate LV dysfunction is here for left heart catheterization. No sedation was given. PROCEDURE IN DETAIL: Via the right radial artery, sterile technique, local anesthesia, 6-Tanzanian radial sheath inserted. PROCEDURE FINDINGS: Engaged the left system with a Best catheter, left main is a [id number] caliber vessel, patent with mild luminal irregularities, no catheter dampening noted. LAD is a [id number] caliber vessel, proximal 30%, there is a stent in the mid LAD that is patent. Diagonal 1 is a small caliber vessel that is patent. Circumflex is a small caliber vessel, less than 2 mm, patent with mild luminal irregularities, goes into a small OM1 with upper and lower branches patent with mild luminal irregularities. RCA engaged with JR4 catheter, is a dominant vessel, but small caliber, proximal, mid patent, distal, bifurcation has 70% lesion of less than 2 mm vessel, going to 2 mm PDA, PLV that are patent. LV gram done in AMALIA and HARDIN view shows mild LV dysfunction, EF 40-45%. LVEDP of 30 mmHg, LV is 108. Aortic is 114/65. No gradient across the aortic valve on pullback. 5-Tanzanian catheters were taken over guidewire, 6-[place] radial sheath was discontinued. Radial dressing applied. No hematoma, no bleeding. SUMMARY: Left main patent with mild irregularities, LAD stent patent, circ small patent with mild irregularities. RCA distal 70% with less than 2 mm vessel. PDA and PLV are small caliber vessel, patent with mild LV dysfunction, EF 40-45%. We will treat medically. JOB# [id number] PHILL/IQRA
[2017-07-18] MEDS: ASPIRIN PO SCH (11:58)
[2017-07-18] MEDS: LOVENOX SUB-Q SCH (11:58)
[2017-07-18] MEDS: ZESTRIL PO SCH (11:58)
[2017-07-18] MEDS: PERCOCET 5/325 PO PRN ×2 (12:05→16:30)
--- NOTE | 2017-07-18 13:59 | Discharge Summary ---
Providers - Providers Date of Admission: 07/15/17 20:25 Date of discharge: 07/18/17 Attending physician: JOHN BAILON 07/15/17 Consult to Cardiac Rehabilitation [CONS] Routine Reason For Exam: Phase I 07/15/17 19:15 Consult to Physician [CONS] Routine Comment: Consulting Provider: RICHA NAIR Physician Instructions: Reason For Exam: nstemi 07/17/17 10:18 Consult to Physician [CONS] Routine Comment: Consulting Provider: BERNADINE ARRIOLA Physician Instructions: Reason For Exam: liver cirrhosis with amonimia 07/18/17 10:58 Consult to Cardiac Rehabilitation [CONS] Routine Reason For Exam: Cardiac Rehab Evaluation Primary care physician: [facility] Hospitalization Reason for admission: chest pain, Condition: Critical Pertinent studies: none Procedures: cardiac cath Hospital course: 61 YO Male with HTN, HCV, Cirrhosis with Ascites S/P Paracentesis, DVT on therapeutic anticoagulation presents to ED for evaluation. Pt states that he has experienced chest pain and shortness of breath for the past 2 weeks with worsening symptoms over the past 1 day. Patient was brought in by EMS from [facility] and has an officer at bedside. Patient states that the pain in his chest 4/10, Substernal, worse with exertion, relieved with rest, nonradiating, relieved with rest, associated with shortness of breath. Pt denies fever, chills, palpitations, NVD, hemoptysis, trauma, BRBPR, unintentional weight loss , night sweats, Orthopnea/PND,Productive cough, or recent ill contacts. Pt seen and evaluated in ED and found to have NSTEMI. Cardiology consulted. Pt admitted to telemetry. Disposition: DC-01 TO HOME OR SELFCARE Time spent for discharge: 35 min Core Measure Documentation - Palliative Care Palliative Care/ Comfort Measures: Not Applicable - Core Measures Any of the following diagnoses?: none Exam - Constitutional Vitals: Temp Pulse Resp BP Pulse Ox 97.3 F L 71 22 83/54 93 07/18/17 07:31 07/18/17 07:31 07/18/17 07:31 07/18/17 07:31 07/18/17 11:40 General appearance: Present: no acute distress, well-nourished - EENT Eyes: Present: PERRL ENT: hearing intact, clear oral mucosa - Neck Neck: Present: supple, normal ROM - Respiratory Respiratory effort: normal Respiratory: bilateral: CTA - Cardiovascular Heart Sounds: Present: S1 & S2. Absent: rub, click - Extremities Extremities: pulses symmetrical, No edema Peripheral Pulses: within normal limits - Abdominal General gastrointestinal: Present: soft, non-tender, distended, normal bowel sounds - Integumentary Integumentary: Present: clear, warm, dry - Musculoskeletal Musculoskeletal: gait normal, strength equal bilaterally - Psychiatric Psychiatric: appropriate mood/affect, intact judgment & insight - Neurologic Neurologic: CNII-XII intact, moves all extremities Plan Activity: fall precautions Follow up with: PRIMARY CARE,MD [Primary Care Provider] - 3-5 Days Prescriptions: amLODIPine [Norvasc] 5 mg PO QDAY #30 tablet Citalopram [Celexa] 20 mg PO QDAY #30 tablet Clindamycin [Clindamycin CAP] 300 mg PO Q8H #21 cap Lactulose [Cephulac] 60 gm PO Q12HR #120 oral.liqd Lisinopril [Zestril TAB] 10 mg PO QDAY #30 tablet Mirtazapine Solutab [Remeron Solutab] 15 mg PO QHS #30 tab.rapdis Morphine ER [Ms Contin ER] 15 mg PO Q12HR #10 tablet Rosuvastatin (Nf) [Crestor] 20 mg PO QHS #30 tablet Spironolactone [Aldactone] 50 mg PO QDAY #30 tablet
[2017-07-18] MEDS: LOPRESSOR PO SCH (14:37)
[2017-07-18] MEDS: CEPHULAC PO SCH ×2 (14:37→14:55)
[2017-07-18] MEDS: celeXA PO SCH (14:37)
[2017-07-18] MEDS: MS CONTIN ER PO SCH (14:38)
[2017-07-18] MEDS: SODIUM CHLORIDE FLUSH SYRINGE 10 ML IV SCH (14:39)
[2017-07-18 19:46] VITALS: BP 92/59
[2017-07-19] MEDS ORDERED: BABY ASPIRIN PO SCH (10:00)
[2017-07-19] MEDS ORDERED: ALDACTONE PO SCH (10:00)
[2017-07-19] MEDS ORDERED: ASPIRIN PO SCH (10:00)
== END 2017-07-18 19:49 | disposition home or self-care (01) | DRG 280 ==
LOC: ED 14:18 → 4A 20:25
PROVIDERS: ADMIT Internal Medicine; ATTEND Family Medicine
PROC: 4A023N7 Measurement of Cardiac Sampling and Pressure, Left Heart, Percutaneous Approach (ICD-10-PCS; principal; 2017-07-18)
PROC: B2111ZZ Fluoroscopy of Multiple Coronary Arteries using Low Osmolar Contrast (ICD-10-PCS; 2017-07-18)
DX: I21.A1 Myocardial infarction type 2 (principal); I50.23 Acute on chronic systolic (congestive) heart failure; E46 Unspecified protein-calorie malnutrition; R18.8 Other ascites; K80.10 Calculus of gallbladder with chronic cholecystitis without obstruction; I47.2 Ventricular tachycardia; K72.90 Hepatic failure, unspecified without coma; I11.0 Hypertensive heart disease with heart failure; K74.60 Unspecified cirrhosis of liver; B19.20 Unspecified viral hepatitis C without hepatic coma; F17.200 Nicotine dependence, unspecified, uncomplicated; I25.10 Atherosclerotic heart disease of native coronary artery without angina pectoris; E87.6 Hypokalemia; E78.5 Hyperlipidemia, unspecified; Z68.20 Body mass index [BMI] 20.0-20.9, adult; Z86.718 Personal history of other venous thrombosis and embolism; Z79.01 Long term (current) use of anticoagulants; Z82.49 Family history of ischemic heart disease and other diseases of the circulatory system; Z79.899 Other long term (current) drug therapy; Z88.5 Allergy status to narcotic agent
CPT/HCPCS: 36415; 74177; 80048; 80053; 80061; 80307; 81001; 82106; 82140; 82550; 82553; 84484; 85025; 85610; 85730; 93005; 93010; 93306; 93458; 94760; A9270-GY; C1887; C1894; J1160; J1644; J1650; J2370; J7030; J7040; Q9967